=== PATIENT | male | born 1945 | race Caucasian/White ===

== ENCOUNTER → 2019-02-21 09:02 | Outpatient (BNVA) | payer OTHER, SELFPAY | PROVIDERS: Family Provider Nurse Practitioner Family; PCP Nurse Practitioner Family; Referring Provider Nurse Practitioner Family; Visit Provider Internal Medicine Rheumatology | DX: M06.00 Rheumatoid arthritis without rheumatoid factor, unspecified site (principal); E55.9 Vitamin D deficiency, unspecified; Z79.899 Other long term (current) drug therapy | CPT/HCPCS: 36415; 80053; 82306; 85007; 85027; 99213 ==

== ENCOUNTER → 2019-06-25 10:48 | Outpatient (BNVA) | payer OTHER, SELFPAY | PROVIDERS: Family Provider Nurse Practitioner Family; PCP Nurse Practitioner Family; Visit Provider Internal Medicine Rheumatology | DX: M19.90 Unspecified osteoarthritis, unspecified site (principal); Z79.899 Other long term (current) drug therapy | CPT/HCPCS: 36415; 80076; 82306; 82565; 85025; 85651; 86140 ==

== ENCOUNTER 2023-12-02 10:04 | Emergency (ER) | payer OTHER, SELFPAY ==
--- NOTE | 2023-12-02 10:06 | XR_ITS ---
WS: [id number] Exam: XR hip LT 2-3V wo/w pel* [id number] Date/Time of Exam: 12/02/2023 10:51 AM Reason For Exam: fall Comparison 10/18/2018. LEFT total hip arthroplasty is in place in satisfactory position. No fracture or loosening. Normal so ft tissues. XR/XR hip LT 2-3V wo/w pel* [id number] IMPRESSION: 1. Intact LEFT total hip arthroplasty.
[2023-12-02 10:54] VITALS: BP 114/50; PULSE 63; RESP 17; TEMP 36.9; O2SAT 97; BMI 25.0
--- NOTE | 2023-12-02 11:02 | W.ED.LOWEXIN ---
HPI - Extremity Injury (Lower) General: Chief Complaint: Extremity Injury, Lower Stated Complaint: Fall - left hip pain Time Seen by Provider: 12/02/23 10:15 Source: patient Mode of arrival: ambulatory Limitations: no limitations History of Present Illness: Patient is a very nice 78-year-old male presents to ED today with a complaint of left hip pain. He states pain began 2 days ago following a fall. Patient states he was outside fishing and walking up a steep embankment when he lost his balance and fell onto the left hip. He states losing his balance is a chronic issue for him. He denies chest pain, shortness of breath, difficulty breathing prior to the fall. He denies striking his head or LOC. Fall was witnessed. He states he did not injure anything else apart from the left hip-does have a very small left elbow abrasion but no bony discomfort. Patient states he has not been able to walk since the fall. Feels like most of his pain is located near his left groin. MD complaint: hip injury Onset (ago): day(s) Injury: Left: hip Place: street/outdoors Severity: moderate Relieving factors: immobilization Exacerbating factors: weight bearing Context: fall Associated symptoms: Reports inability to bear weight Other symptoms: none Related Data Home Medications Medication Instructions Recorded Confirmed metoprolol tartrate 50 mg tablet 50 mg PO DAILY 02/21/19 12/02/23 alprazolam 1 mg tablet See Rx Instructions .Route .COMPLEX 12/02/23 12/02/23 olmesartan 20 mg tablet 20 mg PO DAILY 12/02/23 12/02/23 tamsulosin 0.4 mg capsule 1 mg PO BID 12/02/23 12/02/23 tramadol 50 mg tablet 50 mg PO Q4H 12/02/23 12/02/23 Previous Rx's Medication Instructions Recorded hydrocodone 5 mg-acetaminophen 325 1 tab PO Q6H PRN pain #14 tabs 12/02/23 mg tablet Allergies Allergy/AdvReac Type Severity Reaction Status Date / Time Iodinated Contrast Media Allergy BLISTERS Verified 02/21/19 09:25 ON SKIN Review of Systems Const: Denies: fever(s), chills, body aches, fatigue or malaise Card: Denies: chest pain, palpitations, irregular heart rhythm, edema, lightheadedness, syncope or pre-syncope Resp: Denies: dyspnea GI: Denies: abdominal pain : Denies: flank pain or dysuria Musc: Reports: back pain (chronic-at baseline) and joint pain (L hip); Denies: neck pain, extremity pain or extremity swelling Neuro: Reports: other (reports chronic lack of balance ); Denies: headache(s), numbness in extremities, weakness in extremities or sensory changes PFSH ED PFSH: Social History Smoking and tobacco/nicotine status: never used tobacco/nicotine Alcohol intake: never Substance/Drug Use: never Lives independently: No Household members: spouse Marital status: Physical Exam Const: COMMON NORMALS: no acute distress, average body habitus, patient oriented x3, no limitations, healthy appearing, alert and well nourished GENERAL APPEARANCE: cooperative ORIENTATION/CONSCIOUSNESS: Yes awake, Yes oriented to person, Yes oriented to place and Yes oriented to time HENMT: COMMON NORMALS: normocephalic, atraumatic and TM's normal bilaterally HEAD & SCALP: normal to inspection, normocephalic and atraumatic; no Patiño's sign, no hematoma and no raccoon eyes FACE & SINUS: normal facial exam TYMPANIC MEMBRANE: TM's normal bilaterally MOUTH: other (no intraoral injuries noted) Eye: COMMON NORMALS: Equal, round and reactive pupils present and EOMs intact bilaterally GENERAL EYE: appearance normal, both eyes and all related structures and normal light reflex PUPIL: Yes Equal, round and reactive pupils present DIRECT OPHTHALMOSCOPY: Yes normal light reflex Neck/C-Spine: COMMON NORMALS: full ROM GENERAL: Yes normal visual inspection CERVICAL SPINE: Yes cervical ROM normal, No pain with cervical ROM, No Cervical spine tenderness, No step off deformity and No Paracervical muscle tenderness Chest: COMMONS NORMALS: normal inspection of the chest and normal palpation of entire chest wall Resp: COMMON NORMALS: normal respiratory effort and clear to auscultation bilaterally AUSCULTATION: clear to auscultation bilaterally Cardio: COMMON NORMALS: regular rate and regular rhythm RATE: regular rate RHYTHM: regular rhythm GI: COMMON NORMALS: Normal to inspection, nondistended, normoactive bowel sounds present, Soft to palpation, non-tender, No hepatosplenomegaly present and no masses INSPECTION: Yes normal to inspection and No abdominal wall ecchymosis AUSCULTATION: Yes normoactive bowel sounds PALPATION: Yes Soft to palpation and Yes No hepatosplenomegaly present Back/Pelvis: COMMON NORMALS: thoracic and lumbar spine normal to inspection, no thoracic nor lumbar tenderness and thoraco-lumbar ROM normal Extremity: COMMON NORMALS: normal to inspection, capillary refill normal, no joint enlargement, no clubbing, cyanosis or edema and no pedal edema GENERAL: Yes normal exam except as noted LEFT LOWER EXTREMITY: Yes hip joint OTHER: L LE is not shortened or rotated; he has no pain laterally or posteriorly; fairly good ROM; his main pain is to L groin Neuro: [place] COMA SCALE: document [facility] findings [place] coma scale eye opening: Spontaneous [place] coma scale verbal response: Orientated [place] coma scale motor response: Obey commands [place] coma scale total score: 15 COMMON NORMALS: patient oriented x3, CN's II-XII intact bilaterally, moves all extremities, no focal motor deficits and no sensory deficits noted SENSORIUM/ORIENTATION: Yes alert, Yes oriented to person, Yes oriented to place and Yes oriented to time SPEECH: speech normal GAIT: Yes Unable to assess gait Skin: COMMON NORMALS: no rashes or lesions noted GENERAL SKIN EXAM: no rashes or lesions noted TRAUMA: no lacerations or abrasions Course Vital Signs: Vital signs: Vital Signs Temperature 98.4 F 12/02/23 10:54 Pulse Rate 59 L 12/02/23 12:28 Respiratory Rate 16 12/02/23 12:28 Blood Pressure 125/69 12/02/23 12:28 Pulse Oximetry 97 12/02/23 12:28 Oxygen Delivery Me thod Room Air 12/02/23 12:28 MDM - Extremity Injury (Lower) Medical Decision Making XR of the left hip was obtained from the waiting room. This was dictated as essentially normal. On personal interpretation I did question a possible lateral nondisplaced left pubic rami fracture would which would fit patient's presentation. CT bony pelvis ordered which confirmed this. Patient was ambulatory here with the help of a walker. Feels comfortable going home. Will give him pain medications to go home with and he can follow-up with orthopedics. Medical Records I reviewed the patient's medical records. Lab Data Radiology Impressions Hip/Pelvis X-Ray 12/02/23 10:06 IMPRESSION: 1. Intact LEFT total hip arthroplasty. Pelvis CT 12/02/23 11:12 IMPRESSION: 1. Minimally displaced inferior pubic ramus fracture on the left. All radiology interpretation(s) finalized by discharge Discharge Plan Discharge Patient Disposition: Home Clinical Impression: Closed fracture of left inferior pubic ramus Qualifiers: Encounter type: initial encounter Qualified Code(s): S32.592A - Other specified fracture of left pubis, initial encounter for closed fracture Condition: Stable Prescriptions: New hydrocodone-acetaminophen 5-325 mg tablet 1 tab PO Q6H PRN (Reason: pain) Qty: 14 0RF No Action metoprolol tartrate 50 mg tablet 50 mg PO DAILY alprazolam 1 mg tablet See Rx Instructions .ROUTE .COMPLEX Rx Instructions: TAKE 1/2 TO 1 (ONE-HALF TO ONE) TABLET BY MOUTH AT BEDTIME needed tramadol 50 mg tablet 50 mg PO Q4H tamsulosin 0.4 mg capsule 1 mg PO BID olmesartan 20 mg tablet 20 mg PO DAILY Discharge Orders: Discharge ED (Routine); Ordered 12/02/23 Ordered By: Cathryn Toscano Referrals: Odilia Schumacher APN [Primary Care Provider] - Patient Instructions: Opioid Safety, Pain Management Activity Restrictions/Additional Instructions: As we discussed, your imaging showed a fracture of your left inferior pubic rami. You need to ambulate with the help of a walker at all times. You may take your normal tramadol if this helps control your pain. You may substitute this with the hydrocodone if you need stronger pain medication. Do not take the 2 of them together. As we discussed, case management should reach out to you shortly to help set you up with a follow-up orthopedic appointment. Coding Level of Care Code ED Garnishment Specialist for Yoly Meyer
--- NOTE | 2023-12-02 11:12 | CTR_ITS ---
PROCEDURE INFORMATION: Exam: CT Pelvis Without Contrast, Skeleton Exam date and time: 12/02/2023 11:40 AM Age: 78 years old Clinical indication: Injury or trauma; Fall; Blunt trauma (contusions or hematomas); Left; Prior surgery; Surgery date: 6+ months; Surgery type: Lt hip; Additional info: Fall; L hip/pubic rami tenderness TECHNIQUE: Imaging protocol: Computed tomography of the pelvis without contrast. Exam focused on the skeleton. Radiation optimization: All CT scans at this facility use at least one of these dose optimization techniques: automated exposure control; mA and/or kV adjustment per patient size (includes targeted exams where dose is matched to clinical indication); or iterative reconstruction. COMPARISON: CR XR hip LT 2-3V wo/w pel* [id number] 12/02/2023 10:56 AM RADIATION DOSE METRICS: Total DLP (mGy-cm): 421.87 FINDINGS: Bones/joints: There are postoperative changes status post left hip replacement. Components appear to be in anatomic alignment. There is a minimally displaced inferior pubic ramus fracture on the left. No fractures are otherwise appreciated. SI joints and symphysis pubis are normal. The right femoral head is normally located. Right hip joint spaces relatively well preserved. No definite fracture noted involving the proximal right femur. Soft tissues: There are no acute appearing soft tissue abnormalities. CT/CT bony pelvis [id number] IMPRESSION: 1. Minimally displaced inferior pubic ramus fracture on the left.
[2023-12-02 11:19] VITALS: RESP 18; O2SAT 97
[2023-12-02] MEDS: morphine 4 mg/mL SDV 1 mL IM (11:19)
[2023-12-02] MEDS: ondansetron 2 mg/ML SDV 2 mL 4 MG IM (11:20)
[2023-12-02 12:28] VITALS: BP 125/69; PULSE 59; RESP 16; O2SAT 97
[2023-12-02 13:04] VITALS: BP 111/69; PULSE 60; RESP 16; O2SAT 97
--- NOTE | 2023-12-05 11:40 | DCPLANNER ---
Message sent to Ortho for follow up on a pubic ramus fracture.
== END 2023-12-02 13:02 | disposition home or self-care (01) ==
PROVIDERS: Emergency Provider Physician Assistant; PCP Nurse Practitioner Family
DX: S32.592A Other specified fracture of left pubis, initial encounter for closed fracture (principal); W19.XXXA Unspecified fall, initial encounter
CPT/HCPCS: 72192; 73502; 96372; 99284; J2270; J2405

== ENCOUNTER → 2023-12-13 14:28 | Outpatient (BNVA) | payer OTHER, SELFPAY | PROVIDERS: PCP Nurse Practitioner Family; Visit Provider Orthopaedic Surgery | DX: S32.592A Other specified fracture of left pubis, initial encounter for closed fracture (principal); X58.XXXA Exposure to other specified factors, initial encounter | CPT/HCPCS: 73502 ==

== ENCOUNTER → 2024-01-10 13:31 | Outpatient (BNVA) | payer OTHER, SELFPAY | PROVIDERS: PCP Nurse Practitioner Family; Visit Provider Orthopaedic Surgery | DX: S72.002D Fracture of unspecified part of neck of left femur, subsequent encounter for closed fracture with routine healing (principal); X58.XXXD Exposure to other specified factors, subsequent encounter | CPT/HCPCS: 73502 ==

== ENCOUNTER → 2024-02-21 13:11 | Outpatient (BNVA) | payer OTHER, SELFPAY | PROVIDERS: PCP Nurse Practitioner Family; Visit Provider Orthopaedic Surgery | DX: S72.002D Fracture of unspecified part of neck of left femur, subsequent encounter for closed fracture with routine healing (principal); X58.XXXD Exposure to other specified factors, subsequent encounter | CPT/HCPCS: 73502 ==